=== PATIENT | male | born 1945 | race Caucasian/White ===

== ENCOUNTER 2024-03-05 07:03 | Day surgery (SDC) | payer OTHER ==
[2024-03-05] VITALS (10 sets, daily range): BP systolic 114–161; BP diastolic 62–87; PULSE 56–72; RESP 14–18
[~2024-03-05] VITALS: Ht 162.6 cm; Wt 90.7 kg
[2024-03-05] MEDS ORDERED: AMLO2.5T4 PO (07:50)
[2024-03-05] MEDS: 0.9%NACL 1000ML 1,000 ML IV ONE (07:51)
[2024-03-05] MEDS ORDERED: LIDOCAINE HCL 1% 20 ML VIAL ONE (08:19)
[2024-03-05] MEDS ORDERED: PROPOFOL 10 MG/ML 20ML VIAL IV ONE ×2 (08:19→08:40)
== END 2024-03-05 09:45 | disposition home or self-care (01) ==
LOC: DAH 07:03 → ENDO 07:03
PROVIDERS: ATTEND Internal Medicine Gastroenterology
DX: D50.9 Iron deficiency anemia, unspecified (principal); K62.5 Hemorrhage of anus and rectum; I10 Essential (primary) hypertension; C61 Malignant neoplasm of prostate; E66.9 Obesity, unspecified; Z79.899 Other long term (current) drug therapy; Z68.34 Body mass index [BMI] 34.0-34.9, adult
CPT/HCPCS: 45380; 45382; J7030 ×2; J2704; A4620; A4215 ×2; A4223; A7002; A4222; A4221; A4606; J3490